=== PATIENT | female | born 1975 | race Caucasian/White ===

== ENCOUNTER 2018-04-07 20:04 | Emergency (ER) | payer OTHER ==
--- NOTE | 2018-04-07 21:27 | ED Physician Chart ---
ED Chief Complaint/HPI - Patient Information Date Seen:: 04/07/18 Time Seen:: 21:15 Chief Complaint:: body numbness History of Present Illness:: Patient has a sensation of numbness over her entire body and she stated that she almost fainted. Patient had a migraine headache earlier today for which she took marijuana candy. The headache then improved but she developed the numbness and sensation of near syncope. Allergies:: Allergies Allergy/AdvReac Type Severity Reaction Status Date / Time No Known Allergies Allergy Verified 04/07/18 20:47 Vitals:: Vital Signs - 8 hr 04/07/18 20:20 Temp 98.1 F HR 118 RR 20 BP 146/90 O2 Sat % 97 Historian:: Patient, Family Member Review:: Nurse's Note Reviewed ED Review of Systems - Review of Systems General/Constitutional: No fever, No chills, No weight loss, No weakness, No diaphoresis, No edema, No loss of appetite Skin: No skin lesions, No rash, No bruising Head: Light headed Eyes: No loss of vision, No pain, No diplopia ENT: No earache, No nasal drainage, No sore throat, No tinnitus Neck: No neck pain, No swelling, No thyromegaly, No stiffness, No mass noted Cardio Vascular: No chest pain, No palpitations, No PND, No orthopnea, No edema Pulmonary: No SOB, No cough, No sputum, No wheezing GI: No nausea, No vomiting, No diarrhea, No pain, No melena, No hematochezia, No constipation, No hematemesis G/U: No dysuria, No frequency, No hematuria Musculoskeletal: No bone or joint pain, No back pain, No muscle pain Endocrine: No polyuria, No polydipsia Psychiatric: No prior psych history, No depression, No anxiety, No suicidal ideation Hematopoietic: No bruising, No lymphadenopathy Allergic/Immuno: No urticaria, No angioedema Neurological: No syncope, No focal symptoms, No weakness, No paresthesia, Headache, No seizure, No dizziness, No confusion, No vertigo ED Past Medical History - Past Medical History Past Medical History: No significant medical hx Family History: HTN Social History: Non Smoker, No Alcohol Surgical History: None Psychiatricy History: None Medication: None Family Medical History - Family Member Mother History Unknown: Yes Ethnicity: ED Physical Exam - Physical Examination General/Constitutional: Awake, Well-developed, well-nourished, Alert, No distress, GCS 15, Non-toxic appearing, Ambulatory Head: Atraumatic Eyes: Lids, conjuctiva normal, PERRL, EOMI Skin: Nl inspection, No rash, No skin lesions, No ecchymosis, Well hydrated, No lymphadenopathy ENMT: External ears, nose nl, Nasal exam nl, Lips, teeth, gums nl Neck: Nontender, Full ROM w/o pain, No JVD, No nuchal rigidity, No bruit, No mass, No stridor Respiratory: Nl effort/Exclusion, Clear to Auscultation, No Wheeze/Rhonchi/Rales Cardio Vascular: RRR, No murmur, gallop, rubs, NL S1 S2 GI: No tenderness/rebounding/guarding, No organomegaly, No hernia, Normal BS's, Nondistended, No mass/bruits, No McBurney tenderness : No CVA tenderness Extremities: No tenderness or effusion, Full ROM, normal strength in all extremities, No edema, Normal digits & nails Neuro/Psych: Alert/oriented, DTR's symmetric, Normal sensory exam, Normal motor strength, Judgement/insight normal, Mood normal, Normal gait, No focal deficits Misc: Normal back, No paraspinal tenderness ED Labs/Radiology/EKG Results - Lab Results Results: Laboratory Results - last 24 hr 04/07/18 04/07/18 04/07/18 21:31 21:31 21:31 WBC 6.5 RBC 4.07 Hgb 11.7 L Hct 34.3 L MCV 84.2 MCH 28.7 MCHC Differential 34.1 RDW 12.8 Plt Count 304 MPV 7.4 Neutrophils % 70.6 Lymphocytes % 20.8 Monocytes % 6.0 Eosinophils % 2.1 Basophils % 0.5 Sodium 135 L Potassium 3.4 L Chloride 105 Carbon Dioxide 23.4 Anion Gap 10.0 BUN 12 Creatinine 0.6 Est GFR ( Amer) > 60.0 Est GFR (Non-Af Amer) > 60.0 BUN/Creatinine Ratio 20.0 Glucose 155 H Calcium 8.7 Magnesium 2.1 B-Natriuretic Peptide < 5.0 L ED Assessment - Assessment General Assessment: At about 2245 patient felt slightly better. She seems to have had an adverse reaction to marijuana. ED Septic Shock - . Is Septic Shock (SBP<90, OR Lactate>4 mmol\L) present?: No - <6hrs of presentation: Vital Signs: Vital Signs - 8 hr 04/07/18 20:20 Temp 98.1 F HR 118 RR 20 BP 146/90 O2 Sat % 97 ED Reassessment (Disposition) - Reassessment Reassessment Condition:: Unchanged - Diagnosis Diagnosis:: Adverse drug (marijuana) reaction - Aftercare/Follow up Instructions Aftercare/Follow-Up Instructions:: Refer to Discharge Instructions - Patient Disposition Discharge/Transfer:: Home Condition at Disposition:: Stable, Improved
[2018-04-07 21:37] LABS: % BASOPHILS 0.5 % (0.0-2.0); % EOSINOPHILS 2.1 % (0.0-5.0); % LYMPHOCYTES 20.8 % (20.0-50.0); % NEUTROPHILS 70.6 % (40.0-80.0); EOSINOPHILE ABSOLUTE 0.1 Th/cmm (0.1-0.4); HEMATOCRIT 34.3 % (41.0-60); HEMOGLOBIN 11.7 gm/dL (12-16); LYMPHOCYTE ABSOLUTE 1.4 Th/cmm (1.5-3.0); MEAN CELL VOLUME 84.2 fl (81-100); MEAN CORPUSCULAR HEMOGLOBIN 28.7 pg (27.0-31.0); MEAN CORPUSCULAR HGB CONC 34.1 pg (28.0-36.0); MEAN PLATELET VOLUME 7.4 fl; MONOCYTE ABSOLUTE 0.4 Th/cmm (0.3-1.0); NEUTROPHILE ABSOLUTE 4.6 Th/cmm (1.8-8.0); PLATELET COUNT 304 Th/cmm (150-400); RED BLOOD COUNT 4.07 Mil/cmm (3.80-5.10); RED CELL DISTRIBUTION WIDTH 12.8 % (11.5-20.0); WHITE BLOOD COUNT 6.5 Th/cmm (4.8-10.8)
[2018-04-07 21:52] LABS: BUN - UREA NITROGEN 12 mg/dL (7-25); CALCIUM SERUM 8.7 mg/dL (8.6-10.3); CARBON DIOXIDE 23.4 mEq/L (21.0-31.0); CHLORIDE 105 mEq/L (98-107); CREATININE - SERUM 0.6 mg/dL (0.6-1.2); GFR AFRICAN-AMERICAN > 60.0 ml/min (>90); GFR NON AFRICAN-AMERICAN > 60.0 ml/min; GLUCOSE 155 mg/dL (70-105); MAGNESIUM 2.1 mg/dL (1.9-2.7); POTASSIUM SERUM 3.4 mEq/L (3.5-5.1); SODIUM SERUM 135 mEq/L (136-145)
[2018-04-07] MEDS ORDERED: Sodium Chloride 0.9% 1,000 ML IV ONE (21:52)
[2018-04-07] MEDS ORDERED: Potassium Chloride 20 mEq ER Tab PO ONE ×2 (22:24→22:56)
== END 2018-04-07 23:25 | disposition home or self-care (01) ==
LOC: ER 20:04
DX: T40.7X5A Adverse effect of cannabis (derivatives), initial encounter (principal); Y92.89 Other specified places as the place of occurrence of the external cause
CPT/HCPCS: 36415-UA; 80048-TC; 81025-TC; 83735-TC; 83880-TC; 85025-TC; J7030; Z7502